=== PATIENT | male | born 1970 | race Caucasian/White ===

== ENCOUNTER 2018-03-04 05:43 | Day surgery (SDC) | payer BC ==
[2018-03-04] MEDS ORDERED: MIDAZOLAM 1 MG/ML 2 ML INJ (07:00)
[2018-03-04] MEDS ORDERED: FENTAnyl 50 MCG/ML VIAL (07:00)
== END 2018-03-04 11:12 | disposition home or self-care (01) ==
LOC: GIL 05:43
DX: K21.9 Gastro-esophageal reflux disease without esophagitis (principal); K29.60 Other gastritis without bleeding; B96.81 Helicobacter pylori [H. pylori] as the cause of diseases classified elsewhere; I10 Essential (primary) hypertension
CPT/HCPCS: 43239; 87081